=== PATIENT | male | born 1980 | race Caucasian/White ===

== ENCOUNTER 2021-11-01 18:44 | Emergency (ER) | payer OTHER ==
[2021-11-01] MEDS ORDERED: Lidocaine 1% (PF) 30 ML VIAL ONE (19:43)
[2021-11-01] MEDS ORDERED: Boostrix 0.5 ML (Tdap) VIAL ONE (19:43)
[2021-11-01] MEDS ORDERED: Bacitracin 1 PK ONE (21:41)
== END 2021-11-01 21:41 | disposition home or self-care (01) ==
LOC: CSHERS 18:44
DX: S61.215A Laceration without foreign body of left ring finger without damage to nail, initial encounter (principal); Z23 Encounter for immunization; W26.0XXA Contact with knife, initial encounter; Y92.009 Unspecified place in unspecified non-institutional (private) residence as the place of occurrence of the external cause
CPT/HCPCS: 12001; 90471; 90715; J2001

== ENCOUNTER 2022-06-14 15:47 | Emergency (ER) | payer OTHER ==
[2022-06-14] MEDS ORDERED: Ketorolac Tromethamine 30 MG/ML VIAL ONE (16:24)
[2022-06-14 16:30] LABS: MDiff Complete? YES; Mean Corpuscular HGB CONC 34.7 g/dL (32.0-36.0); Mean Corpuscular Hemoglobin 31.7 pg (27.0-33.0); Mean Corpuscular Volume 91.3 fl (81.2-95.1); Mean Platelet Volume 9.9 fl (7.4-10.4); Platelet Count 321 10x3/uL (150-450); RBC Distribution Width 13.5 % (11.5-14.5); Red Blood Cell (RBC) Count 4.73 10x6/uL (4.32-5.72); White Blood Cell (WBC) Count 9.4 10x3/uL (3.5-10.5)
[2022-06-14 16:33] LABS: ALT (SGPT) 51 U/L (8-55); AST (SGOT) 22 U/L (5-34); Albumin 5.3 g/dL (3.5-5.0); Alkaline Phosphatase 82 U/L (40-110); Anion Gap 17 mmol/L (10-20); BUN (Urea Nitrogen) 19 mg/dL (8.9-20.6); Bilirubin, Total 0.8 mg/dL (0.2-1.2); Calc. Creatinine Clearance 0 mL/min (70-130); Calcium 10.4 mg/dL (7.8-10.44); Carbon Dioxide 20 mmol/L (22-29); Chloride 104 mmol/L (98-107); Estimated GFR 70; Globulin 3.4 g/dL (2.4-3.5); Glucose 161 mg/dL (70-105); Potassium 3.6 mmol/L (3.5-5.1); Protein, Total 8.7 g/dL (6.0-8.3); Sodium 137 mmol/L (136-145)
[2022-06-14 16:51] LABS: Band 6 % (5-11); Lymphocytes 6 % (21-51); Monocytes 3 % (0-10); Neutrophil 85 % (42-75); Platelet Morphology Comment Appears Adequate
[2022-06-14 17:04] LABS: Bilirubin Neg (Negative); Blood, Urine 250 (Negative); Clarity Sl. Cloudy (Clear); Glucose, Urine (Dipstick) Normal (Negative); Ketone, Urine Negative (Negative); Leukocyte 25 (Negative); Nitrite Negative (Negative); Protein, Urine (Dipstick) 30 mg/dl (Neg-Trace); Specific Gravity, Urine 1.025 (1.005-1.030); Urobilinogen Normal mg/dL (Less than 2)
[2022-06-14 17:17] LABS: RBC/HPF 21-50 HPF (0-3)
[2022-06-14 17:18] LABS: Bacteria/HPF 2+ HPF (None Seen); Mucous/LPF 4+ LPF (<2+); Squamous Epithelial 0-3 HPF (0-3); White Blood Cell Cast 0-3 LPF (None Seen)
== END 2022-06-14 17:36 | disposition home or self-care (01) ==
LOC: CSHERS 15:47
DX: N13.2 Hydronephrosis with renal and ureteral calculous obstruction (principal)
CPT/HCPCS: 74176; 80053; 81003; 81015; 85025; 96361; 96374; J1885